=== PATIENT | male | born 1980 | race African-American/Black ===

== ENCOUNTER 2020-03-29 12:51 | Emergency (ER) | payer OTHER ==
[2020-03-29 12:57] VITALS: BP 159/97
[2020-03-29] MEDS ORDERED: IBUPROFEN 800 MG TABLET PO ONE (14:02)
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
== END 2020-03-29 14:10 | disposition home or self-care (01) ==
LOC: ER 12:51
DX: S46.812A Strain of other muscles, fascia and tendons at shoulder and upper arm level, left arm, initial encounter (principal); M54.2 Cervicalgia; M54.9 Dorsalgia, unspecified; M25.512 Pain in left shoulder; V87.7XXA Person injured in collision between other specified motor vehicles (traffic), initial encounter; M54.6 Pain in thoracic spine
CPT/HCPCS: 99283